=== PATIENT | female | born 1960 | race Caucasian/White ===

== ENCOUNTER 2019-04-15 20:55 | Emergency (ER) | payer OTHER ==
[~2019-04-15] VITALS: Ht 157.5 cm; Wt 72.2 kg
[2019-04-15 21:09] VITALS: Ht 157.5 cm; Wt 72.2 kg
[2019-04-15 21:33] LABS: BASOPHIL % 0.5 % (0-2); PLATELET COUNT 283 x10^3mcL (130-400); RED CELL DISTRIBUTION WIDTH 13.4 % (11.5-14.5)
[2019-04-15 21:55] LABS: CALCIUM 8.9 mg/dL (8.5-10.1); CARBON DIOXIDE 22.7 mmol/L (21-32); CHLORIDE SERUM 105 mmol/L (98-107); CREATININE SERUM 0.8 mg/dL (0.6-1.0); GFR1 > 60 mL/min; GLUCOSE SERUM 99 mg/dL (74-106); POTASSIUM SERUM 3.8 mmol/L (3.5-5.1); SODIUM SERUM 140 mmol/L (136-145)
[2019-04-15 21:59] LABS: ALBUMIN 3.6 g/dL (3.4-5.0); ALKALINE PHOSPHATASE 116 U/L (46-116); ALT/SGPT 31 U/L (14-59); AST/SGOT 20 U/L (15-37); BILIRUBIN TOTAL 0.3 mg/dL (0.20-1.00); LIPASE 183 IU/L (73-393); TOTAL PROTEIN, SERUM 7.4 g/dL (6.4-8.2)
[2019-04-16 00:38] VITALS: BP 138/82
== END 2019-04-16 00:38 | disposition home or self-care (01) ==
LOC: ED 20:55
PROVIDERS: Emergency Medicine
DX: R10.84 Generalized abdominal pain (principal); K59.00 Constipation, unspecified; I10 Essential (primary) hypertension; Z88.2 Allergy status to sulfonamides; Z90.49 Acquired absence of other specified parts of digestive tract
CPT/HCPCS: J1885; J2270; J2405; J7030